=== PATIENT | male | born 1960 ===

== ENCOUNTER 2020-05-27 08:23 | Day surgery (SDC) | payer BC ==
[~2020-05-27] VITALS: Ht 177.8 cm; Wt 88.9 kg
[2020-05-27] MEDS ORDERED: FLUT.05NI (08:41)
[2020-05-27] MEDS ORDERED: ATOR20 PO (08:41)
--- NOTE | 2020-05-27 09:02 | NUR ---
Ambulatory in Day Surgery History, Chart, Medications and Allergies reviewed before start of procedure.Patient confirms NPO status and agrees with scheduled surgery. Patient states colon prep results clear.Lungs clear T/O to Auscultation. Patient States Post-Procedure ride home has been arranged WITH
--- NOTE | 2020-05-27 09:53 | NUR ---
05/27/20 0953 Blair Craig PATIENT DETERMINED TO BE ASA APPROPRIATE FOR PROPOFOL SEDATION PRIOR TO START OF PROCEDURE BY 3-LEAD EKG REVIEWED WITH PHYSICIAN PRIOR TO START OF PROCEDURE.Patient to ENDO 1History, Chart, Medications and Allergies reviewed before start of procedure.MONITOR INTACT WITH CONTINUOUS PULSE OXIMETRY AND INTERMITTENT BP.O2 VIA N/C INTACT THROUGHOUT SEDATION/PROCEDURE.
--- NOTE | 2020-05-27 10:42 | NUR ---
Patient up to Ambulate independently. Gait steady. Discharge instructions reviewed with patient. Patient verbalizes understanding. Copy given to patient to take home. Discharged via wheelchair to private car for ride home WITH
== END 2020-05-27 22:39 | disposition home or self-care (01) ==
LOC: ORSCMMR 08:23
PROVIDERS: Internal Medicine Gastroenterology
PROC: 0DBM8ZX Excision of Descending Colon, Via Natural or Artificial Opening Endoscopic, Diagnostic (ICD-10-PCS; principal; 2020-05-27 09:30)
PROC: 0DBN8ZX Excision of Sigmoid Colon, Via Natural or Artificial Opening Endoscopic, Diagnostic (ICD-10-PCS; principal; 2020-05-27 09:30)
DX: Z12.11 Encounter for screening for malignant neoplasm of colon (principal); Z80.0 Family history of malignant neoplasm of digestive organs; K63.5 Polyp of colon; E78.00 Pure hypercholesterolemia, unspecified; Z79.899 Other long term (current) drug therapy
CPT/HCPCS: 88305; J2704; J7120

== ENCOUNTER 2022-07-08 04:29 | Emergency (ER) | payer BC ==
[~2022-07-08] VITALS: Ht 177.8 cm; Wt 79.8 kg
[~2022-07-08 04:29] MED LIST: ATOR20 PO; FLUT.05NI
[2022-07-08 04:59] LABS: BASOPHILS ABSOLUTE AUTO 0.03 K/mm3 (0.00-0.23); BASOPHILS PERCENT AUTO 0 % (0-2); EOSINOPHILS PERCENT AUTO 0 % (0-6); Hematocrit 40.3 % (37.0-53.0); IMMATURE GRAN ABSOLUTE AUTO 0.08 K/mm3 (0.00-0.10); IMMATURE GRAN PERCENT AUTO 0 % (0-1); LYMPHOCYTES ABSOLUTE AUTO 0.81 K/mm3 (0.84-5.20); LYMPHOCYTES PERCENT AUTO 4 % (21-46); MONOCYTES PERCENT AUTO 6 % (4-13); Mean Corpuscular HGB 32.6 pg (26.0-34.0); Mean Corpuscular HGB Conc 34.7 g/dL (31.5-36.5); Mean Corpuscular Volume 94 fL (80-100); Mean Platelet Volume 10.3 fL (9.1-12.4); NEUTROPHILS ABSOLUTE AUTO 17.44 K/mm3 (1.96-9.15); NEUTROPHILS PERCENT AUTO 89 % (41-73); Platelet Count 182 K/mm3 (150-400); RDW Coefficient Variation 12.3 % (11.7-14.2); RDW Standard Deviation 42.6 fL (35.1-46.3); Red Blood Cell Count 4.29 M/mm3 (4.30-5.90); White Blood Cell Count 19.56 K/mm3 (4.00-11.30)
[2022-07-08 05:18] LABS: Albumin, Blood 3.3 g/dL (3.4-5.0); Albumin/Globulin Ratio 0.8 (0.8-1.8); Bilirubin, Total 1.3 mg/dL (0.1-1.0); Bun/Creatinine Ratio 16.7 (12.0-20.0); Calcium, Blood 8.6 mg/dL (8.5-10.1); Creatinine, Blood 0.9 mg/dL (0.60-1.20); Globulin, Blood 4.2 g/dL (2.2-4.0); Potassium, Blood 3.7 mmol/L (3.5-5.5); Total Protein, Blood 7.5 g/dL (6.4-8.2)
[2022-07-08 05:49] LABS: Source, Urine Clean Catch
[2022-07-08 05:52] LABS: Appearance, Urine Clear (Clear); Bilirubin, Urine Neg (Neg); Blood, Urine 1+ (Neg); Color, Urine Yellow (P-Yellow); Glucose Qualitative, Urine Neg (Neg); Ketones, Urine 2+ (Neg); Leukocyte Esterase, Urine Neg (Neg); Nitrite, Urine Neg (Neg); Protein, Urine 2+ (Neg); Specific Gravity, Urine 1.015 (1.003-1.022); Urobilinogen, Urine 1+ (Normal)
[2022-07-08 06:19] LABS: Red Blood Cells, Urine 0-2 /hpf (0-2); White Blood Cells, Urine 0-2 /hpf (0-5)
[2022-07-08 06:21] LABS: Bacteria Few /hpf; Mucus Mod (0-Heavy); Squamous Epithelial Cells Rare /hpf (Few)
[2022-07-08 06:44] LABS: Influenza A, PCR NEGATIVE (NEGATIVE); Influenza B, PCR NEGATIVE (NEGATIVE); Resp Syncytial Virus, PCR NEGATIVE (NEGATIVE); SARS-Cov-2 (COVID-19) PCR, MMC NEGATIVE (NEGATIVE)
[2022-07-08] MEDS ORDERED: AMOCLA875 PO (07:07)
[2022-07-08] MEDS ORDERED: AZIT250 PO (07:07)
[2022-07-09] MEDS ORDERED: OXAYDO5 M1 PO (02:52)
== END 2022-07-08 08:18 | disposition home or self-care (01) ==
LOC: ER 04:29
PROVIDERS: Student in an Organized Health Care Education/Training Program
DX: J18.9 Pneumonia, unspecified organism (principal); R00.0 Tachycardia, unspecified; D72.829 Elevated white blood cell count, unspecified; Z79.899 Other long term (current) drug therapy; Z20.822 Contact with and (suspected) exposure to COVID-19
CPT/HCPCS: 0241U; 71046; 80053; 81001; 83605; 85025; 93005; 93010; 96361; 96365; 96375; 99284-25; A9270; J0456; J0696; J7030; J7050

== ENCOUNTER 2022-07-09 00:22 | Emergency (ER) | payer BC ==
[~2022-07-09] VITALS: Ht 177.8 cm; Wt 78.5 kg
[~2022-07-09 00:22] MED LIST changes: +AMOCLA875 PO; +AZIT250 PO
[2022-07-09] MEDS ORDERED: OXAYDO5 M1 PO (02:52)
== END 2022-07-09 02:55 | disposition home or self-care (01) ==
LOC: ER 00:22
DX: J18.9 Pneumonia, unspecified organism (principal); Z79.899 Other long term (current) drug therapy
CPT/HCPCS: A9270; J1885

== ENCOUNTER 2023-03-31 02:39 | Inpatient (IN) | payer BC ==
[~2023-03-31] VITALS: Ht 177.8 cm; Wt 81.1 kg
[~2023-03-31 02:39] MED LIST changes: +OXAYDO5 M1 PO
[2023-03-31 03:37] LABS: BASOPHILS ABSOLUTE AUTO 0.04 K/mm3 (0.00-0.23); BASOPHILS PERCENT AUTO 0 % (0-2); EOSINOPHILS ABSOLUTE AUTO 0.16 K/mm3 (0.00-0.68); EOSINOPHILS PERCENT AUTO 1 % (0-6); Hematocrit 48.7 % (37.0-53.0); Hemoglobin 16.9 g/dL (13.5-17.5); IMMATURE GRAN ABSOLUTE AUTO 0.06 K/mm3 (0.00-0.10); IMMATURE GRAN PERCENT AUTO 0 % (0-1); LYMPHOCYTES ABSOLUTE AUTO 1.43 K/mm3 (0.84-5.20); LYMPHOCYTES PERCENT AUTO 8 % (21-46); MONOCYTES ABSOLUTE AUTO 0.97 K/mm3 (0.16-1.47); MONOCYTES PERCENT AUTO 6 % (4-13); Mean Corpuscular HGB 32.6 pg (26.0-34.0); Mean Corpuscular HGB Conc 34.7 g/dL (31.5-36.5); Mean Corpuscular Volume 94 fL (80-100); Mean Platelet Volume 10.2 fL (9.1-12.4); NEUTROPHILS ABSOLUTE AUTO 14.92 K/mm3 (1.96-9.15); NEUTROPHILS PERCENT AUTO 85 % (41-73); Platelet Count 202 K/mm3 (150-400); RDW Coefficient Variation 12.4 % (11.7-14.2); RDW Standard Deviation 42.8 fL (35.1-46.3); Red Blood Cell Count 5.19 M/mm3 (4.30-5.90); White Blood Cell Count 17.58 K/mm3 (4.00-11.30)
[2023-03-31 03:58] LABS: Albumin, Blood 4.1 g/dL (3.4-5.0); Albumin/Globulin Ratio 0.9 (0.8-1.8); Bilirubin, Total 0.6 mg/dL (0.1-1.0); Bun/Creatinine Ratio 11.9 (12.0-20.0); Calcium, Blood 9.2 mg/dL (8.5-10.1); Creatinine, Blood 1.09 mg/dL (0.60-1.20); Globulin, Blood 4.5 g/dL (2.2-4.0); Magnesium, Blood 2.3 mg/dL (1.6-2.4); Phosphorus, Blood 2.3 mg/dL (2.5-4.9); Potassium, Blood 3.8 mmol/L (3.5-5.5); Total Protein, Blood 8.6 g/dL (6.4-8.2)
[2023-03-31 04:15] LABS: Influenza A, PCR NEGATIVE (NEGATIVE); Influenza B, PCR NEGATIVE (NEGATIVE); Resp Syncytial Virus, PCR NEGATIVE (NEGATIVE); SARS-Cov-2 (COVID-19) PCR, MMC NEGATIVE (NEGATIVE)
[2023-03-31 05:47] LABS: Source, Urine Clean Catch
[2023-03-31 05:53] LABS: Appearance, Urine Clear (Clear); Bilirubin, Urine Neg (Neg); Blood, Urine 1+ (Neg); Glucose Qualitative, Urine Neg (Neg); Ketones, Urine Neg (Neg); Leukocyte Esterase, Urine Neg (Neg); Nitrite, Urine Neg (Neg); Protein, Urine Neg (Neg); Specific Gravity, Urine 1.005 (1.003-1.022); Urobilinogen, Urine NORM (Normal)
[2023-03-31 05:59] LABS: Color, Urine Pale Yellow (P-Yellow)
[2023-03-31 06:00] LABS: Bacteria Rare /hpf; Squamous Epithelial Cells Rare /hpf (Few); White Blood Cells, Urine Not Seen /hpf (0-5)
[2023-03-31] MEDS ORDERED: ONDA4ODT MM (07:04)
--- NOTE | 2023-03-31 13:38 | NUR ---
CALLED AD RECIEVED REPORT FROM ED RN. PER REPORT PT ALERT ORIENTED AD INDEPENDENT. AWAITING PT ARRIVAL.
--- NOTE | 2023-03-31 15:25 | NUR ---
ADMIT NOTE- PT ALERT, ORIENTED AD INDEPENDENT IN THE ROOM. NO S&S OF DISTRESS NOTED AT THE TIME OF ADMIT. ADMISSION IS COMPLETED. MED REC COMPLETED. CONT BIOX SHOWS 97% ON RA.
[2023-03-31 15:33] VITALS: BP 116/67
--- NOTE | 2023-03-31 18:25 | NUR ---
SHIFT SUMMARY- PT ADMITTED THROUGH THE ED FOR ENTERITIS AND POSSIBLE PNEUMONIA. IVF RUNNING INTO AN AC IV. FLUSHES WELL. PT IS ON ROOM AIR. CONT BIOX IN PLACE SATS 96%. PT HAD A SYNCOPAL EVENT AT HOME PRIOR TO BEING BROUGHT IN BY EMS. PT IS CURRENTLY ALERT AND ORIENTED, INDEPENDENT IN THE ROOM. NO S&S OF DISTRESS. ON TELE SIN AT 80.
[2023-03-31 19:38] VITALS: BP 143/82
[2023-04-01 04:26] VITALS: BP 120/72
--- NOTE | 2023-04-01 04:53 | NUR ---
SHIFT SUMMARY PT IS A&OX4. NORMOTENSIVE, ON TELEMETRY, NSR 70-90'S (VIA WORM RAISER), T-MAX 99.3, O2 SATS 97% ON RA. DENIES PAIN. TOLERATING A CLEAR LIQUID DIET, NO N/V. VOIDING IN BR, NO BM THIS SHIFT. UP INDEPENDENTLY IN ROOM. BED IN LOWEST POSITION. CALL LIGHT WITHIN REACH. FIRE SAFETY CHECKS COMPLETED
[2023-04-01 05:50] LABS: Magnesium, Blood 2.1 mg/dL (1.6-2.4)
[2023-04-01 05:55] LABS: Albumin, Blood 2.9 g/dL (3.4-5.0); Albumin/Globulin Ratio 0.9 (0.8-1.8); Bilirubin, Total 0.8 mg/dL (0.1-1.0); Bun/Creatinine Ratio 11.6 (12.0-20.0); Calcium, Blood 7.9 mg/dL (8.5-10.1); Creatinine, Blood 0.95 mg/dL (0.60-1.20); Globulin, Blood 3.4 g/dL (2.2-4.0); Potassium, Blood 3.5 mmol/L (3.5-5.5); Total Protein, Blood 6.3 g/dL (6.4-8.2)
[2023-04-01 08:09] VITALS: BP 123/72
[2023-04-01 15:48] VITALS: BP 125/74
--- NOTE | 2023-04-01 18:00 | NUR ---
SHIFT SUMMARY PATIENT TOLERATING IV ABX WELL, STARTED PO ABX, TOLERATING WELL. ABLE TO AMBULATE IN HALLWAYS, NO OXYGEN DESAT. A/O X4. NO C/O ABD PAIN, NO BOWEL MOVEMENTS THIS SHIFT. TOLERATING DIET, NO NAUSEA/VOMITING. LUNGS CLEAR, NO SOB, ON CONTINUOUS PULSE OX. WILL CONTINUE TO MONITOR
[2023-04-01 19:16] VITALS: BP 138/80
[2023-04-02 03:11] VITALS: BP 137/77
[2023-04-02 05:00] LABS: BASOPHILS ABSOLUTE AUTO 0.03 K/mm3 (0.00-0.23); BASOPHILS PERCENT AUTO 1 % (0-2); EOSINOPHILS ABSOLUTE AUTO 0.14 K/mm3 (0.00-0.68); EOSINOPHILS PERCENT AUTO 2 % (0-6); Hemoglobin 13.8 g/dL (13.5-17.5); IMMATURE GRAN ABSOLUTE AUTO 0.01 K/mm3 (0.00-0.10); IMMATURE GRAN PERCENT AUTO 0 % (0-1); LYMPHOCYTES ABSOLUTE AUTO 1.52 K/mm3 (0.84-5.20); LYMPHOCYTES PERCENT AUTO 26 % (21-46); MONOCYTES ABSOLUTE AUTO 0.95 K/mm3 (0.16-1.47); MONOCYTES PERCENT AUTO 16 % (4-13); Mean Corpuscular HGB 33.1 pg (26.0-34.0); Mean Corpuscular HGB Conc 35.4 g/dL (31.5-36.5); Mean Corpuscular Volume 94 fL (80-100); NEUTROPHILS ABSOLUTE AUTO 3.13 K/mm3 (1.96-9.15); NEUTROPHILS PERCENT AUTO 54 % (41-73); Platelet Count 155 K/mm3 (150-400); RDW Coefficient Variation 12.7 % (11.7-14.2); RDW Standard Deviation 43.7 fL (35.1-46.3); Red Blood Cell Count 4.17 M/mm3 (4.30-5.90); White Blood Cell Count 5.78 K/mm3 (4.00-11.30)
--- NOTE | 2023-04-02 05:18 | NUR ---
SHIFT SUMMARY PT IS A&OX4. NORMOTENSIVE, ON TELEMETRY SR 70'S (VIA DIRECTOR CLINICAL PHARMACOLOGY), AFEBRILE, O2 SAT >95% ON RA. DENIES PAIN. UP AD YUMIKO IN ROOM. TOLERATING A CLEAR LIQUID DIET, NO N/V. VOIDING ADEQUATELY IN BR. NO BM THIS SHIFT, BOWEL SOUNDS ACTIVE. BED IN LOWEST POSITION. CALL LIGHT WITHIN REACH. FIRE SAFETY CHECKS COMPLETED
[2023-04-02 06:02] LABS: Albumin, Blood 2.9 g/dL (3.4-5.0); Anion Gap 11 mmol/L (6-16); Blood Urea Nitrogen 8 mg/dL (8-24); Bun/Creatinine Ratio 8.7 (12.0-20.0); CO2, Blood 23 mmol/L (21-32); Calcium, Blood 8.1 mg/dL (8.5-10.1); Chloride, Blood 107 mmol/L (98-108); Creatinine, Blood 0.92 mg/dL (0.60-1.20); Glomerular Filtration Rate 93 (60-); Glucose, Blood 100 mg/dL (70-99); Phosphorus, Blood 2.7 mg/dL (2.5-4.9); Potassium, Blood 3.3 mmol/L (3.5-5.5); Sodium, Blood 141 mmol/L (136-145)
[2023-04-02 07:46] VITALS: BP 130/78
[2023-04-02] MEDS ORDERED: Acetaminophen650 M1 PO (12:18)
[2023-04-02] MEDS ORDERED: AZIT250 PO (12:22)
[2023-04-02] MEDS ORDERED: CEPH500 (12:23)
[2023-04-02] MEDS ORDERED: VISBIOME 112.51 EACH (12:24)
--- NOTE | 2023-04-02 13:22 | NUR ---
DISCHARGE NOTE: DISCHARGE DISCUSSED WITH PATIENT AND . HAND OUT ON HOW TO ACCESS PATIENT PORTAL PROVIDER PER REQUEST. BELONGINGS GATHERED, IV AND TELEMETRY REMOVED BY MANAGER FURNITURE. PATIENT AND AMBULATED TOGETHER OUT OF HOSPITAL.
== END 2023-04-02 12:39 | disposition home or self-care (01) | DRG 871 ==
LOC: ER 02:39 → MEDS 11:18
PROVIDERS: Emergency Medicine; Family Medicine; ADMIT Hospitalist
DX: A41.9 Sepsis, unspecified organism (principal); J18.9 Pneumonia, unspecified organism; E87.20 Acidosis, unspecified; R65.20 Severe sepsis without septic shock; E87.5 Hyperkalemia; E83.39 Other disorders of phosphorus metabolism; K21.9 Gastro-esophageal reflux disease without esophagitis; E78.5 Hyperlipidemia, unspecified; E86.0 Dehydration; E05.90 Thyrotoxicosis, unspecified without thyrotoxic crisis or storm; E11.9 Type 2 diabetes mellitus without complications; K52.9 Noninfective gastroenteritis and colitis, unspecified; Z11.52 Encounter for screening for COVID-19; Z79.51 Long term (current) use of inhaled steroids; Z79.2 Long term (current) use of antibiotics; Z79.891 Long term (current) use of opiate analgesic; Z79.899 Other long term (current) drug therapy; Z90.79 Acquired absence of other genital organ(s); Z98.890 Other specified postprocedural states
CPT/HCPCS: 0241U; 36415; 71045; 74177; 80053; 80069; 81001; 83605; 83735; 84100; 84484; 85025; 87040; 87070; 87076; 87205; 93005; 93010; 94762; 96361; 96365; 96375; 99285-25; A9270; J0696; J1650; J1885; J2405; J7030; Q9967